=== PATIENT | female | born 1945 | race Caucasian/White ===

== ENCOUNTER 2022-03-05 11:58 | Inpatient (IN) | payer OTHER ==
[2022-03-05] MEDS ORDERED: VANCOMYCIN 1 GM in D5W (PRE-DOCKED) 1,000 MG/250 ML IVPB ONE (12:10)
[2022-03-05] MEDS ORDERED: SODIUM CHLORIDE 0.9% 500 ML INFUS.BAG IV ONE ×2 (12:10→12:59)
[2022-03-05] MEDS ORDERED: PIPERACILLIN/TAZOB 3.375 GM 3.375 GM in DEXTROSE 5%-WATER - 50 ML IVPB ONE (12:11)
[2022-03-05] MEDS ORDERED: ACETAMINOPHEN INJECTION 100 ML IVPB ONE (12:15)
[2022-03-05] MEDS ORDERED: VANCOMYCIN/WATER FOR INJ (PEG) 1,000 MG/200 ML BAG IVPB ONE (12:18)
[2022-03-05] MEDS ORDERED: PIPERACILLIN/TAZOB 3.375 GM 3.375 GM/50 ML BAG IVPB ONE ×2 (12:18→16:15)
[2022-03-05 12:38] LABS: VENOUS BASE EXCESS -3.8 mmol/L (-2-2); VENOUS O2 SATURATION 62.5 % (70-80); VENOUS PCO2 36.8 mmHg (38-52); VENOUS PH 7.371 (7.310-7.410)
[2022-03-05 12:54] LABS: HEMATOCRIT 29.8 % (32.4-45.2); HEMOGLOBIN 9.9 GM/dL (10.7-15.3); MCH 29.8 pg (25.7-33.7); MCHC 33.3 g/dl (32.0-36.0); MEAN CELL VOLUME 89.5 fl (80-96); MEAN PLT VOLUME 8.9 fl (7.5-11.1); PLATELET COUNT 152 10^3/uL (134-434); RBC 3.34 M/mm3 (3.60-5.2); RDW 13.8 % (11.6-15.6); WHITE BLOOD COUNT 15.2 K/mm3 (4.0-10.0)
[2022-03-05] MEDS ORDERED: ACETAMINOPHEN 1000 MG/100 ML BAG IVPB ONE (12:59)
[2022-03-05 13:02] LABS: INR 1.43 (0.83-1.09); PROTHROMBIN TIME (PATIENT) 16.5 SEC (9.7-13.0)
[2022-03-05 13:03] LABS: CALCIUM 9.1 mg/dL (8.5-10.1)
[2022-03-05 13:04] LABS: ALBUMIN 2.9 g/dl (3.4-5.0); BLOOD UREA NITROGEN 49.9 mg/dL (7-18)
[2022-03-05 13:05] LABS: ACTIVATED PTT 30.4 SECONDS (25.2-36.5)
[2022-03-05 13:08] LABS: TOT PROT 6.2 g/dl (6.4-8.2)
[2022-03-05 13:09] LABS: BILIRUBIN,TOTAL 1.1 mg/dL (0.2-1)
[2022-03-05] MEDS ORDERED: NOREPINEPHRINE BITARTRATE 16,000 MCG in SODIUM CHLORIDE 484 ML IV SCH (13:15)
[2022-03-05 13:35] LABS: LACTIC ACID 4.7 mmol/L (0.4-2.0)
[2022-03-05 13:36] LABS: LACTIC ACID 4.4 mmol/L (0.4-2.0)
[2022-03-05 13:38] LABS: EPI CELLS 12 /uL (0-25.1); HYALINE CASTS 1 /uL (0-3.1); URINE APPEARANCE CLOUDY; URINE BACTERIA >9,000 /uL (0-1359); URINE BILIRUBIN NEGATIVE (NEGATIVE); URINE COLOR YELLOW; URINE GLUCOSE (UA) NEGATIVE (NEGATIVE); URINE KETONE NEGATIVE (NEGATIVE); URINE LEUK ESTERASE 2+ (NEGATIVE); URINE NITRITE POSITIVE (NEGATIVE); URINE PROTEIN 2+ (NEGATIVE); URINE RBC 32 /uL (0-23.9); URINE UROBILINOGEN 0.2 mg/dL (0.2-1.0); URINE WBC 67 /uL (0-25.8)
[2022-03-05 13:40] LABS: ANISOCYTOSIS 0; HELMET CELLS 0; HOWELL-JOLLY BODIES 0; MACROCYTOSIS 0; OVALOCYTE 0; ROULEAU 0; SICKELED CELLS 0; TARGET CELLS 0; TEAR DROP CELLS 0; TOXIC GRANULATION 0
[2022-03-05] MEDS: NOREPINEPHRINE BITARTRATE 16,000 MCG in SODIUM CHLORIDE 484 ML IV SCH (13:53)
[2022-03-05] MEDS ORDERED: SODIUM CHLORIDE 1,000 ML IV SCH (14:00)
[2022-03-05] MEDS ORDERED: HEPARIN NA (PORCINE) 5,000 UNITS/ML 1ML VIAL ONE (16:15)
[2022-03-05] MEDS: HEPARIN NA (PORCINE) 5,000 UNITS/ML 1ML VIAL SQ SCH (16:15)
[2022-03-05 16:52] LABS: LACTIC ACID 2.9 mmol/L (0.4-2.0)
[2022-03-05] MEDS ORDERED: SODIUM CHLORIDE 1,000 ML IV STA (16:57)
[2022-03-05] MEDS ORDERED: MEROPENEM 500 MG in DEXTROSE 5%-WATER 100 ML IVPB SCH (17:00)
[2022-03-05] MEDS ORDERED: MEROPENEM 500 MG VIAL (RESTRICTED TO ID) IVPB ONE (17:36)
[2022-03-05] MEDS: MEROPENEM 500 MG in DEXTROSE 5%-WATER 100 ML IVPB SCH (18:11)
[2022-03-05] MEDS: SODIUM CHLORIDE 1,000 ML IV SCH (18:11)
[2022-03-05] MEDS ORDERED: PIPERACILLIN/TAZOB 3.375 GM 3.375 GM in DEXTROSE 5%-WATER - 50 ML IVPB SCH (21:00)
[2022-03-05] MEDS ORDERED: METOPROLOL TARTRATE 5 MG/5 ML VIAL IVPUSH ONE (23:11)
[2022-03-05] MEDS ORDERED: METOPROLOL TARTRATE 5 MG/5 ML VIAL IVPUSH PRN ×2 (23:14)
[2022-03-06] MEDS: MUPIROCIN 2% TOPICAL OINTMENT FOR DECOLONIZATION NS SCH ×3 (00:08→22:07)
[2022-03-06] MEDS: HEPARIN NA (PORCINE) 5,000 UNITS/ML 1ML VIAL SQ SCH ×4 (00:15→22:09)
[2022-03-06] MEDS: CHLORHEXIDINE GLUCONATE 4% CLEANSER FOR DECOLONIZATION TP SCH ×2 (00:16→22:07)
[2022-03-06] MEDS ORDERED: DEXAMETHASONE SOD PHOSPHATE 10 MG/1 ML VIAL ONE (00:36)
[2022-03-06] MEDS ORDERED: MIDAZOLAM IN 0.9 % SOD.CHLORID 1 MG/1 ML PLAST..BAG ONE (00:44)
[2022-03-06] MEDS ORDERED: MIDAZOLAM 100 MG in SODIUM CHLORIDE 100 ML IVPB SCH (00:45)
[2022-03-06 02:17] LABS: HEMOGLOBIN 8.2 GM/dL (10.7-15.3); MCH 29.2 pg (25.7-33.7); MCHC 31.5 g/dl (32.0-36.0); MEAN CELL VOLUME 92.6 fl (80-96); MEAN PLT VOLUME 8.8 fl (7.5-11.1); PLATELET COUNT 107 10^3/uL (134-434); RBC 2.81 M/mm3 (3.60-5.2); RDW 14.8 % (11.6-15.6); WHITE BLOOD COUNT 13.6 K/mm3 (4.0-10.0)
[2022-03-06 02:18] LABS: ARTERIAL BLOOD GAS BASE EXCESS -23.5 mmol/L (-2-2)
[2022-03-06 02:22] LABS: ALLENS TEST POSITIVE
[2022-03-06 02:23] LABS: ARTERIAL BLOOD GAS pH 6.925 (7.350-7.450); VENT MODE A/C; VENT RATE 16
[2022-03-06] MEDS ORDERED: DEXTROSE 50%-WATER 25 GM/50 ML DISP.SYRIN ONE (02:25)
[2022-03-06 02:43] LABS: CHLORIDE 112 mmol/L (98-107); SODIUM 142 mmol/L (136-145)
[2022-03-06 02:46] LABS: ANION GAP 17 MMOL/L (8-16); CO2 13 mmol/L (21-32); GLUCOSE,RANDOM 52 mg/dL (74-106); MAGNESIUM 1.9 mg/dL (1.8-2.4)
[2022-03-06 02:48] LABS: SGPT/ALT 280 U/L (13-61)
[2022-03-06 02:49] LABS: CREATININE 2.9 mg/dL (0.55-1.3); PHOSPHOROUS 6.6 mg/dL (2.5-4.9); SGOT/AST 316 U/L (15-37)
[2022-03-06 02:50] LABS: BILIRUBIN,TOTAL 0.8 mg/dL (0.2-1); TOT PROT 4.8 g/dl (6.4-8.2)
[2022-03-06 02:53] LABS: ALBUMIN 2.1 g/dl (3.4-5.0); ALK PHOS 164 U/L (45-117); CALCIUM 7.1 mg/dL (8.5-10.1); LACTIC ACID 11.4 mmol/L (0.4-2.0)
[2022-03-06] MEDS: MIDAZOLAM IN 0.9 % SOD.CHLORID 100 MG/100 ML PLAST..BAG IVPB SCH ×2 (03:53→23:18)
[2022-03-06] MEDS: SODIUM BICARBONATE 8.4% - 150 MEQ in DEXTROSE 5%-WATER - 950 ML IVPB SCH ×3 (04:24→23:18)
[2022-03-06] MEDS ORDERED: VASOPRESSIN 20 UNITS/ML VIAL IV ONE (04:54)
[2022-03-06] MEDS: VASOPRESSIN 40 UNITS/100 ML BAG IV SCH (05:02)
[2022-03-06 05:17] LABS: ANISOCYTOSIS 1+; MACROCYTOSIS 0; OVALOCYTE 1+
[2022-03-06] MEDS: MEROPENEM 500 MG in DEXTROSE 5%-WATER 100 ML IVPB SCH (05:58)
[2022-03-06] MEDS: SODIUM CHLORIDE 1,000 ML IV SCH ×2 (06:14→16:27)
[2022-03-06 08:10] LABS: BASO % 0.3 % (0-2.0); EOS % 14.6 % (0-4.5); HEMATOCRIT 26.7 % (32.4-45.2); HEMOGLOBIN 8.6 GM/dL (10.7-15.3); LYMPH % 1.6 % (8-40); MCH 29.9 pg (25.7-33.7); MCHC 32.4 g/dl (32.0-36.0); MEAN CELL VOLUME 92.5 fl (80-96); MEAN PLT VOLUME 9.9 fl (7.5-11.1); MONO % 1.5 % (3.8-10.2); PLATELET COUNT 82 10^3/uL (134-434); RBC 2.88 M/mm3 (3.60-5.2); RDW 14.4 % (11.6-15.6); WHITE BLOOD COUNT 17.6 K/mm3 (4.0-10.0)
[2022-03-06 09:14] LABS: ALBUMIN 1.7 g/dl (3.4-5.0); BLOOD UREA NITROGEN 49.9 mg/dL (7-18); CALCIUM 7.6 mg/dL (8.5-10.1); MAGNESIUM 1.9 mg/dL (1.8-2.4)
[2022-03-06 09:17] LABS: CREATININE 2.9 mg/dL (0.55-1.3); PHOSPHOROUS 7.2 mg/dL (2.5-4.9)
[2022-03-06 09:18] LABS: BILIRUBIN,TOTAL 1.1 mg/dL (0.2-1)
[2022-03-06] MEDS ORDERED: VANCOMYCIN 1 GM/200 ML PREMIX BAG IVPB SCH (10:00)
[2022-03-06] MEDS: NOREPINEPHRINE BITARTRATE 16,000 MCG in SODIUM CHLORIDE 484 ML IV SCH (14:26)
[2022-03-06 16:09] LABS: ALLENS TEST POSITIVE; ARTERIAL BLD GAS O2 SATURATION 91.4 % (95-98); ARTERIAL BLOOD GAS PO2 69.4 mmHg (80-100); ARTERIAL BLOOD GAS pH 7.254 (7.350-7.450)
[2022-03-06 16:11] LABS: VENT MODE AC; VENT RATE 20
[2022-03-06] MEDS: MEROPENEM 1 GM in DEXTROSE 5%-WATER 100 ML IVPB SCH (16:27)
[2022-03-06] MEDS ORDERED: ADENOSINE 6 MG/2 ML VIAL IVPUSH ONE (17:05)
[2022-03-06] MEDS ORDERED: SODIUM CHLORIDE 1,000 ML IV STA (20:47)
[2022-03-06] MEDS ORDERED: PIPERACILLIN/TAZOB 3.375 GM 3.375 GM in DEXTROSE 5%-WATER - 50 ML IVPB SCH (21:00)
[2022-03-06] MEDS: PHENYLEPHRINE NS PREMIX 50,000 MCG/500 ML BAG CVP SCH (22:04)
[2022-03-06] MEDS ORDERED: FUROSEMIDE 40 MG/4 ML INJECTABLE VIAL IVPUSH ONE (23:53)
[2022-03-07 00:29] LABS: CHLORIDE 108 mmol/L (98-107); SODIUM 145 mmol/L (136-145)
[2022-03-07 00:31] LABS: ANION GAP 17 MMOL/L (8-16); CO2 19 mmol/L (21-32)
[2022-03-07 00:32] LABS: BLOOD UREA NITROGEN 49.7 mg/dL (7-18); GLUCOSE,RANDOM 323 mg/dL (74-106)
[2022-03-07 00:35] LABS: CREATININE 2.8 mg/dL (0.55-1.3)
[2022-03-07 00:36] LABS: LACTIC ACID 9.6 mmol/L (0.4-2.0)
[2022-03-07 00:37] LABS: CALCIUM 6.2 mg/dL (8.5-10.1)
[2022-03-07] MEDS: FENTANYL NS IVPB 500 MCG/100 ML BAG IVPB SCH ×2 (02:46→15:00)
[2022-03-07] MEDS: VASOPRESSIN 40 UNITS/100 ML BAG IV SCH ×3 (02:48→17:22)
[2022-03-07] MEDS ORDERED: NOREPINEPHRINE BITARTRATE 4 MG/4 ML ML IV ONE (03:04)
[2022-03-07] MEDS: NOREPINEPHRINE BITARTRATE 16,000 MCG in SODIUM CHLORIDE 484 ML IV SCH ×2 (03:10→17:18)
[2022-03-07] MEDS: MEROPENEM 1 GM in DEXTROSE 5%-WATER 100 ML IVPB SCH ×2 (05:21→17:14)
[2022-03-07] MEDS: HEPARIN NA (PORCINE) 5,000 UNITS/ML 1ML VIAL SQ SCH ×3 (05:21→21:43)
[2022-03-07] MEDS: MIDAZOLAM IN 0.9 % SOD.CHLORID 100 MG/100 ML PLAST..BAG IVPB SCH ×2 (05:22→15:00)
[2022-03-07] MEDS: METOPROLOL TARTRATE 5 MG/5 ML VIAL IVPUSH PRN (06:32)
[2022-03-07 06:53] LABS: HEMATOCRIT 29.1 % (32.4-45.2); HEMOGLOBIN 9.6 GM/dL (10.7-15.3); MCH 29.5 pg (25.7-33.7); MCHC 32.9 g/dl (32.0-36.0); MEAN CELL VOLUME 89.6 fl (80-96); MEAN PLT VOLUME 10.6 fl (7.5-11.1); PLATELET COUNT 37 10^3/uL (134-434); RBC 3.24 M/mm3 (3.60-5.2)
[2022-03-07 07:35] LABS: WHITE BLOOD COUNT 34.7 K/mm3 (4.0-10.0)
[2022-03-07 07:49] LABS: CHLORIDE 108 mmol/L (98-107); SODIUM 144 mmol/L (136-145)
[2022-03-07 07:53] LABS: ALBUMIN 1.4 g/dl (3.4-5.0); ANION GAP 15 MMOL/L (8-16); BLOOD UREA NITROGEN 50.9 mg/dL (7-18); CO2 21 mmol/L (21-32)
[2022-03-07 07:54] LABS: GLUCOSE,RANDOM 322 mg/dL (74-106); MAGNESIUM 1.5 mg/dL (1.8-2.4)
[2022-03-07 07:56] LABS: PHOSPHOROUS 4.7 mg/dL (2.5-4.9); SGPT/ALT 529 U/L (13-61)
[2022-03-07 07:57] LABS: CREATININE 2.7 mg/dL (0.55-1.3); SGOT/AST 472 U/L (15-37)
[2022-03-07 07:58] LABS: BILIRUBIN,TOTAL 1.1 mg/dL (0.2-1); TOT PROT 3.6 g/dl (6.4-8.2)
[2022-03-07 07:59] LABS: ALK PHOS 162 U/L (45-117)
[2022-03-07 08:00] LABS: CALCIUM 5.9 mg/dL (8.5-10.1)
[2022-03-07] MEDS: PHENYLEPHRINE NS PREMIX 50,000 MCG/500 ML BAG CVP SCH ×2 (08:30→22:00)
[2022-03-07] MEDS ORDERED: CALCIUM GLUC IN NACL, ISO-OSM 1 GM/50 ML BAG IVPB ONE (09:00)
[2022-03-07] MEDS ORDERED: VANCOMYCIN 1 GM/200 ML PREMIX BAG IVPB SCH (10:00)
[2022-03-07] MEDS: MUPIROCIN 2% TOPICAL OINTMENT FOR DECOLONIZATION NS SCH ×2 (10:18→21:43)
[2022-03-07 10:32] LABS: ANISOCYTOSIS 0; HELMET CELLS 0; HOWELL-JOLLY BODIES 0; MACROCYTOSIS 0; OVALOCYTE 0; ROULEAU 0; SICKELED CELLS 0; TARGET CELLS 0; TEAR DROP CELLS 0; TOXIC GRANULATION 0
[2022-03-07] MEDS: SODIUM BICARBONATE 8.4% - 150 MEQ in DEXTROSE 5%-WATER - 950 ML IVPB SCH (11:00)
[2022-03-07 13:35] LABS: ARTERIAL BLD GAS O2 SATURATION 98.6 % (95-98); ARTERIAL BLOOD GAS BASE EXCESS 2.2 mmol/L (-2-2); ARTERIAL BLOOD GAS PO2 119.7 mmHg (80-100); ARTERIAL BLOOD GAS pH 7.474 (7.350-7.450)
[2022-03-07 13:37] LABS: ALLENS TEST POSITIVE
[2022-03-07 13:38] LABS: VENT MODE AC; VENT RATE 20
[2022-03-07] MEDS ORDERED: MAGNESIUM SULFATE IN WATER 2 GM/50 ML IVPB IVPB ONE (16:45)
[2022-03-07] MEDS: HYDROCORTISONE SOD SUCCINATE 100 MG/2 ML VIAL IVPUSH SCH (17:15)
[2022-03-07] MEDS: SODIUM CHLORIDE 1,000 ML IV SCH (17:16)
[2022-03-07] MEDS: INSULIN SLIDING SCALE (NOVOLOG) 1 VIAL SQ SCH ×2 (17:17→21:47)
[2022-03-07] MEDS: PANTOPRAZOLE SODIUM 40 MG VIAL IVPUSH SCH (19:57)
[2022-03-07] MEDS: CHLORHEXIDINE GLUCONATE 4% CLEANSER FOR DECOLONIZATION TP SCH (21:43)
[2022-03-08] MEDS: HYDROCORTISONE SOD SUCCINATE 100 MG/2 ML VIAL IVPUSH SCH ×3 (01:59→17:43)
[2022-03-08] MEDS: MIDAZOLAM IN 0.9 % SOD.CHLORID 100 MG/100 ML PLAST..BAG IVPB SCH (03:04)
[2022-03-08] MEDS: MEROPENEM 1 GM in DEXTROSE 5%-WATER 100 ML IVPB SCH ×2 (05:10→17:25)
[2022-03-08] MEDS: FENTANYL NS IVPB 500 MCG/100 ML BAG IVPB SCH (05:12)
[2022-03-08] MEDS: VASOPRESSIN 40 UNITS/100 ML BAG IV SCH ×2 (05:13→20:38)
[2022-03-08] MEDS: HEPARIN NA (PORCINE) 5,000 UNITS/ML 1ML VIAL SQ SCH ×3 (05:18→21:19)
[2022-03-08] MEDS: INSULIN SLIDING SCALE (NOVOLOG) 1 VIAL SQ SCH ×4 (07:10→21:20)
[2022-03-08 07:16] LABS: ARTERIAL BLOOD GAS BASE EXCESS 1.7 mmol/L (-2-2); ARTERIAL BLOOD GAS PO2 80.3 mmHg (80-100); ARTERIAL BLOOD GAS pH 7.418 (7.350-7.450)
[2022-03-08 07:19] LABS: VENT MODE V-A/C; VENT RATE 20
[2022-03-08 08:10] LABS: CHLORIDE 105 mmol/L (98-107); SODIUM 144 mmol/L (136-145)
[2022-03-08 08:14] LABS: ALBUMIN 1.4 g/dl (3.4-5.0); ANION GAP 10 MMOL/L (8-16); BLOOD UREA NITROGEN 51.1 mg/dL (7-18); CO2 30 mmol/L (21-32); GLUCOSE,RANDOM 195 mg/dL (74-106)
[2022-03-08 08:15] LABS: MAGNESIUM 1.9 mg/dL (1.8-2.4)
[2022-03-08 08:17] LABS: CREATININE 2.6 mg/dL (0.55-1.3); SGOT/AST 191 U/L (15-37); SGPT/ALT 369 U/L (13-61)
[2022-03-08 08:18] LABS: BILIRUBIN,TOTAL 1.6 mg/dL (0.2-1)
[2022-03-08 08:19] LABS: TOT PROT 3.8 g/dl (6.4-8.2)
[2022-03-08 08:22] LABS: ALK PHOS 221 U/L (45-117); CALCIUM 6.6 mg/dL (8.5-10.1)
[2022-03-08 08:30] LABS: HEMATOCRIT 25.6 % (32.4-45.2); HEMOGLOBIN 8.4 GM/dL (10.7-15.3); MCH 29.1 pg (25.7-33.7); MCHC 32.9 g/dl (32.0-36.0); MEAN CELL VOLUME 88.3 fl (80-96); MEAN PLT VOLUME 9.8 fl (7.5-11.1); RBC 2.89 M/mm3 (3.60-5.2); RDW 14.4 % (11.6-15.6)
[2022-03-08 08:48] LABS: WHITE BLOOD COUNT 31.9 K/mm3 (4.0-10.0)
[2022-03-08] MEDS: METOPROLOL TARTRATE 5 MG/5 ML VIAL IVPUSH PRN (09:44)
[2022-03-08] MEDS: PANTOPRAZOLE SODIUM 40 MG VIAL IVPUSH SCH (09:47)
[2022-03-08] MEDS ORDERED: CALCIUM GLUCONATE 10% - 1,000 MG/10 ML VIAL IVPB ONE (09:55)
[2022-03-08] MEDS: MUPIROCIN 2% TOPICAL OINTMENT FOR DECOLONIZATION NS SCH ×2 (09:57→21:19)
[2022-03-08] MEDS: SODIUM CHLORIDE 1,000 ML IV SCH ×2 (09:58→17:26)
[2022-03-08 10:15] LABS: ANISOCYTOSIS 0; HELMET CELLS 0; HOWELL-JOLLY BODIES 0; MACROCYTOSIS 0; OVALOCYTE 0; ROULEAU 0; SICKELED CELLS 0; TARGET CELLS 0; TEAR DROP CELLS 0; TOXIC GRANULATION 0
[2022-03-08 10:48] LABS: PLATELET COUNT 16 10^3/uL (134-434)
[2022-03-08] MEDS: NOREPINEPHRINE BITARTRATE 16,000 MCG in SODIUM CHLORIDE 484 ML IV SCH ×2 (12:27→17:29)
[2022-03-08] MEDS: CHLORHEXIDINE GLUCONATE 4% CLEANSER FOR DECOLONIZATION TP SCH (21:19)
[2022-03-09] MEDS: FENTANYL NS IVPB 500 MCG/100 ML BAG IVPB SCH ×2 (00:24→03:18)
[2022-03-09] MEDS: SODIUM CHLORIDE 1,000 ML IV SCH (00:25)
[2022-03-09] MEDS: HYDROCORTISONE SOD SUCCINATE 100 MG/2 ML VIAL IVPUSH SCH ×3 (01:50→17:10)
[2022-03-09] MEDS: MIDAZOLAM IN 0.9 % SOD.CHLORID 100 MG/100 ML PLAST..BAG IVPB SCH (04:19)
[2022-03-09] MEDS: VASOPRESSIN 40 UNITS/100 ML BAG IV SCH (04:21)
[2022-03-09] MEDS: HEPARIN NA (PORCINE) 5,000 UNITS/ML 1ML VIAL SQ SCH ×3 (05:21→21:52)
[2022-03-09] MEDS: MEROPENEM 1 GM in DEXTROSE 5%-WATER 100 ML IVPB SCH ×2 (05:21→17:09)
[2022-03-09] MEDS: INSULIN SLIDING SCALE (NOVOLOG) 1 VIAL SQ SCH ×4 (06:23→22:00)
[2022-03-09 06:43] LABS: ARTERIAL BLD GAS O2 SATURATION 90.4 % (95-98); ARTERIAL BLOOD GAS BASE EXCESS 2.4 mmol/L (-2-2); ARTERIAL BLOOD GAS PO2 56.7 mmHg (80-100); ARTERIAL BLOOD GAS pH 7.435 (7.350-7.450)
[2022-03-09 06:46] LABS: VENT MODE V-A/C
[2022-03-09 06:51] LABS: VENT RATE 20
[2022-03-09 06:58] LABS: HEMATOCRIT 23.3 % (32.4-45.2); HEMOGLOBIN 7.6 GM/dL (10.7-15.3); MCH 28.3 pg (25.7-33.7); MCHC 32.5 g/dl (32.0-36.0); MEAN CELL VOLUME 87.1 fl (80-96); MEAN PLT VOLUME 9.7 fl (7.5-11.1); RBC 2.68 M/mm3 (3.60-5.2); RDW 14.5 % (11.6-15.6); WHITE BLOOD COUNT 29.1 K/mm3 (4.0-10.0)
[2022-03-09 07:09] LABS: PLATELET COUNT 12 10^3/uL (134-434)
[2022-03-09 07:23] LABS: ALBUMIN 1.4 g/dl (3.4-5.0); BLOOD UREA NITROGEN 51.3 mg/dL (7-18)
[2022-03-09 07:26] LABS: CREATININE 2.4 mg/dL (0.55-1.3)
[2022-03-09 07:28] LABS: TOT PROT 3.8 g/dl (6.4-8.2)
[2022-03-09 07:51] LABS: BILIRUBIN,DIRECT 0.5 mg/dL (0.0-0.2); BILIRUBIN,TOTAL 1.3 mg/dL (0.2-1)
[2022-03-09] MEDS: KCL 10 MEQ IVPB 10 MEQ/100 ML INFUS.BAG IVPB SCH ×3 (09:50→11:48)
[2022-03-09] MEDS: PANTOPRAZOLE SODIUM 40 MG VIAL IVPUSH SCH (09:51)
[2022-03-09] MEDS: MUPIROCIN 2% TOPICAL OINTMENT FOR DECOLONIZATION NS SCH ×2 (09:51→21:52)
[2022-03-09] MEDS: NOREPINEPHRINE BITARTRATE 16,000 MCG in SODIUM CHLORIDE 484 ML IV SCH (14:19)
[2022-03-09 14:29] VITALS: BMI 25.0
[2022-03-09] MEDS: SODIUM CHLORIDE 0.45% 1,000 ML IV SCH (17:09)
[2022-03-09] MEDS: MORPHINE SULFATE/0.9% NACL/PF 100 MG/100 ML BAG IVPB SCH (19:11)
[2022-03-09] MEDS: CHLORHEXIDINE GLUCONATE 4% CLEANSER FOR DECOLONIZATION TP SCH (21:52)
[2022-03-10] MEDS: HYDROCORTISONE SOD SUCCINATE 100 MG/2 ML VIAL IVPUSH SCH ×3 (01:05→17:32)
[2022-03-10] MEDS: VASOPRESSIN 40 UNITS/100 ML BAG IV SCH (04:30)
[2022-03-10] MEDS: MEROPENEM 1 GM in DEXTROSE 5%-WATER 100 ML IVPB SCH ×2 (04:42→17:31)
[2022-03-10] MEDS: SODIUM CHLORIDE 0.45% 1,000 ML IV SCH ×2 (04:49→17:50)
[2022-03-10] MEDS: INSULIN SLIDING SCALE (NOVOLOG) 1 VIAL SQ SCH ×4 (06:31→22:47)
[2022-03-10] MEDS: HEPARIN NA (PORCINE) 5,000 UNITS/ML 1ML VIAL SQ SCH ×3 (06:31→22:14)
[2022-03-10 07:55] LABS: HEMATOCRIT 23.5 % (32.4-45.2); HEMOGLOBIN 7.7 GM/dL (10.7-15.3); MCH 28.7 pg (25.7-33.7); MCHC 32.8 g/dl (32.0-36.0); MEAN CELL VOLUME 87.4 fl (80-96); MEAN PLT VOLUME 10.3 fl (7.5-11.1); RBC 2.68 M/mm3 (3.60-5.2); RDW 14.5 % (11.6-15.6); WHITE BLOOD COUNT 28.9 K/mm3 (4.0-10.0)
[2022-03-10 08:15] LABS: CALCIUM 7.1 mg/dL (8.5-10.1)
[2022-03-10 08:17] LABS: ALBUMIN 1.4 g/dl (3.4-5.0)
[2022-03-10 08:20] LABS: CREATININE 2.2 mg/dL (0.55-1.3); PHOSPHOROUS 2.2 mg/dL (2.5-4.9)
[2022-03-10 08:21] LABS: BILIRUBIN,TOTAL 0.9 mg/dL (0.2-1); TOT PROT 3.9 g/dl (6.4-8.2)
[2022-03-10 08:39] LABS: PLATELET COUNT 16 10^3/uL (134-434)
[2022-03-10] MEDS: PANTOPRAZOLE SODIUM 40 MG VIAL IVPUSH SCH (09:56)
[2022-03-10] MEDS: MUPIROCIN 2% TOPICAL OINTMENT FOR DECOLONIZATION NS SCH (09:56)
[2022-03-10 10:01] LABS: ANISOCYTOSIS 1+; MACROCYTOSIS 1+
[2022-03-10] MEDS ORDERED: POTASSIUM PHOSPHATE 20 MM in DEXTROSE 5%-WATER - 250 ML IVPB ONE (14:00)
[2022-03-10] MEDS: MORPHINE SULFATE/0.9% NACL/PF 100 MG/100 ML BAG IVPB SCH (19:50)
[2022-03-10] MEDS: NOREPINEPHRINE BITARTRATE 16,000 MCG in SODIUM CHLORIDE 484 ML IV SCH (19:50)
[2022-03-10] MEDS: CHLORHEXIDINE GLUCONATE 4% CLEANSER FOR DECOLONIZATION TP SCH (22:15)
[2022-03-10 22:22] LABS: ARTERIAL BLD GAS O2 SATURATION 98.4 % (95-98); ARTERIAL BLOOD GAS BASE EXCESS 2.6 mmol/L (-2-2)
[2022-03-10 22:24] LABS: VENT MODE V-A/C; VENT RATE 20
[2022-03-11] MEDS: HYDROCORTISONE SOD SUCCINATE 100 MG/2 ML VIAL IVPUSH SCH ×3 (02:56→17:04)
[2022-03-11] MEDS: VASOPRESSIN 40 UNITS/100 ML BAG IV SCH (04:29)
[2022-03-11] MEDS: MEROPENEM 1 GM in DEXTROSE 5%-WATER 100 ML IVPB SCH ×2 (04:31→17:04)
[2022-03-11] MEDS: HEPARIN NA (PORCINE) 5,000 UNITS/ML 1ML VIAL SQ SCH (05:56)
[2022-03-11] MEDS: INSULIN SLIDING SCALE (NOVOLOG) 1 VIAL SQ SCH ×4 (06:20→21:31)
[2022-03-11] MEDS: SODIUM CHLORIDE 0.45% 1,000 ML IV SCH ×2 (07:22→17:03)
[2022-03-11 08:14] LABS: HEMATOCRIT 23.6 % (32.4-45.2); HEMOGLOBIN 7.8 GM/dL (10.7-15.3); MCH 29.1 pg (25.7-33.7); MCHC 33.1 g/dl (32.0-36.0); MEAN PLT VOLUME 12.3 fl (7.5-11.1); RBC 2.68 M/mm3 (3.60-5.2); RDW 14.3 % (11.6-15.6); WHITE BLOOD COUNT 26.7 K/mm3 (4.0-10.0)
[2022-03-11 08:23] LABS: BLOOD UREA NITROGEN 71.7 mg/dL (7-18); MAGNESIUM 1.9 mg/dL (1.8-2.4)
[2022-03-11 08:24] LABS: ALBUMIN 1.4 g/dl (3.4-5.0); CALCIUM 7.3 mg/dL (8.5-10.1)
[2022-03-11 08:26] LABS: BILIRUBIN,TOTAL 1.1 mg/dL (0.2-1); PHOSPHOROUS 3.9 mg/dL (2.5-4.9)
[2022-03-11 08:57] LABS: PLATELET COUNT 25 10^3/uL (134-434)
[2022-03-11 10:15] LABS: ANISOCYTOSIS 0; HELMET CELLS 0; HOWELL-JOLLY BODIES 0; MACROCYTOSIS 0; OVALOCYTE 0; ROULEAU 0; SICKELED CELLS 0; TARGET CELLS 0; TEAR DROP CELLS 0; TOXIC GRANULATION 0
[2022-03-11] MEDS: PANTOPRAZOLE SODIUM 40 MG VIAL IVPUSH SCH (10:35)
[2022-03-11] MEDS: MORPHINE SULFATE/0.9% NACL/PF 100 MG/100 ML BAG IVPB SCH (12:56)
[2022-03-11] MEDS: NOREPINEPHRINE BITARTRATE 16,000 MCG in SODIUM CHLORIDE 484 ML IV SCH (17:02)
[2022-03-11] MEDS: CHLORHEXIDINE GLUCONATE 4% CLEANSER FOR DECOLONIZATION TP SCH (21:27)
[2022-03-12] MEDS: HYDROCORTISONE SOD SUCCINATE 100 MG/2 ML VIAL IVPUSH SCH ×3 (01:23→17:33)
[2022-03-12] MEDS: MEROPENEM 1 GM in DEXTROSE 5%-WATER 100 ML IVPB SCH ×2 (04:32→17:32)
[2022-03-12] MEDS: VASOPRESSIN 40 UNITS/100 ML BAG IV SCH (04:33)
[2022-03-12] MEDS: INSULIN SLIDING SCALE (NOVOLOG) 1 VIAL SQ SCH ×4 (06:08→22:41)
[2022-03-12 06:57] LABS: BASO % 0.1 % (0-2.0); HEMATOCRIT 22.6 % (32.4-45.2); HEMOGLOBIN 7.5 GM/dL (10.7-15.3); LYMPH % 1.3 % (8-40); MCH 29.2 pg (25.7-33.7); MCHC 32.9 g/dl (32.0-36.0); MEAN CELL VOLUME 88.7 fl (80-96); MEAN PLT VOLUME 11.8 fl (7.5-11.1); MONO % 1.9 % (3.8-10.2); NEUT % 96.7 % (42.8-82.8); RBC 2.55 M/mm3 (3.60-5.2); RDW 14.4 % (11.6-15.6); WHITE BLOOD COUNT 20.2 K/mm3 (4.0-10.0)
[2022-03-12 07:18] LABS: ALBUMIN 1.4 g/dl (3.4-5.0); BLOOD UREA NITROGEN 78.5 mg/dL (7-18); CALCIUM 7.1 mg/dL (8.5-10.1); MAGNESIUM 1.9 mg/dL (1.8-2.4)
[2022-03-12 07:22] LABS: CREATININE 1.9 mg/dL (0.55-1.3); PHOSPHOROUS 4.3 mg/dL (2.5-4.9)
[2022-03-12 07:23] LABS: BILIRUBIN,TOTAL 0.8 mg/dL (0.2-1); TOT PROT 3.8 g/dl (6.4-8.2)
[2022-03-12 09:22] LABS: ANISOCYTOSIS 1+; MACROCYTOSIS 0; PLATELET ESTIMATE DECREASED
[2022-03-12 10:30] LABS: PLATELET COUNT 30 10^3/uL (134-434)
[2022-03-12] MEDS: PANTOPRAZOLE SODIUM 40 MG VIAL IVPUSH SCH (10:37)
[2022-03-12] MEDS: SODIUM CHLORIDE 0.45% 1,000 ML IV SCH ×2 (17:33→17:51)
[2022-03-12] MEDS ORDERED: LORazepam 2 MG/ML SDV VIAL IVPUSH ONE (19:24)
[2022-03-12] MEDS ORDERED: levETIRAcetam 500 MG/5 ML INJECTION VIAL IVPB ONE (21:28)
[2022-03-12] MEDS: CHLORHEXIDINE GLUCONATE 4% CLEANSER FOR DECOLONIZATION TP SCH (22:19)
[2022-03-13] MEDS: HYDROCORTISONE SOD SUCCINATE 100 MG/2 ML VIAL IVPUSH SCH ×3 (01:31→17:21)
[2022-03-13] MEDS: MEROPENEM 1 GM in DEXTROSE 5%-WATER 100 ML IVPB SCH ×2 (04:47→17:17)
[2022-03-13] MEDS: VASOPRESSIN 40 UNITS/100 ML BAG IV SCH (04:47)
[2022-03-13] MEDS: INSULIN SLIDING SCALE (NOVOLOG) 1 VIAL SQ SCH ×4 (06:24→21:59)
[2022-03-13 06:25] LABS: HEMATOCRIT 20.9 % (32.4-45.2); MCH 29.4 pg (25.7-33.7); MCHC 33.1 g/dl (32.0-36.0); MEAN CELL VOLUME 88.8 fl (80-96); MEAN PLT VOLUME 12.7 fl (7.5-11.1); RBC 2.35 M/mm3 (3.60-5.2); RDW 14.1 % (11.6-15.6); WHITE BLOOD COUNT 17.5 K/mm3 (4.0-10.0)
[2022-03-13 06:43] LABS: HEMOGLOBIN 6.9 GM/dL (10.7-15.3); PLATELET COUNT 36 10^3/uL (134-434)
[2022-03-13 06:44] LABS: CHLORIDE 107 mmol/L (98-107); SODIUM 140 mmol/L (136-145)
[2022-03-13 06:50] LABS: ALBUMIN 1.2 g/dl (3.4-5.0); ANION GAP 7 MMOL/L (8-16); BLOOD UREA NITROGEN 86.3 mg/dL (7-18); CO2 26 mmol/L (21-32); GLUCOSE,RANDOM 258 mg/dL (74-106); MAGNESIUM 2.1 mg/dL (1.8-2.4)
[2022-03-13 06:53] LABS: CREATININE 1.8 mg/dL (0.55-1.3); PHOSPHOROUS 5.2 mg/dL (2.5-4.9); SGOT/AST 38 U/L (15-37)
[2022-03-13 06:55] LABS: BILIRUBIN,TOTAL 0.7 mg/dL (0.2-1); TOT PROT 3.5 g/dl (6.4-8.2)
[2022-03-13 07:14] LABS: ALK PHOS 312 U/L (45-117); CALCIUM 6.8 mg/dL (8.5-10.1); SGPT/ALT 88 U/L (13-61)
[2022-03-13] MEDS: levETIRAcetam 500 MG/5 ML INJECTION VIAL IVPB SCH ×2 (09:08→21:52)
[2022-03-13] MEDS: PANTOPRAZOLE SODIUM 40 MG VIAL IVPUSH SCH (09:08)
[2022-03-13 09:35] LABS: ANISOCYTOSIS 0; MACROCYTOSIS 0; PLATELET ESTIMATE DECREASED
[2022-03-13 10:00] LABS: HEMATOCRIT 23.1 % (32.4-45.2); HEMOGLOBIN 7.8 GM/dL (10.7-15.3); MCH 29.9 pg (25.7-33.7); MCHC 33.6 g/dl (32.0-36.0); MEAN CELL VOLUME 88.9 fl (80-96); MEAN PLT VOLUME 13.1 fl (7.5-11.1); PLATELET COUNT 42 10^3/uL (134-434); RDW 14.4 % (11.6-15.6); WHITE BLOOD COUNT 20.7 K/mm3 (4.0-10.0)
[2022-03-13 11:19] LABS: ANISOCYTOSIS 1+; MACROCYTOSIS 0; PLATELET ESTIMATE DECREASED
[2022-03-13] MEDS: SODIUM CHLORIDE 0.45% 1,000 ML IV SCH ×2 (16:53→21:53)
[2022-03-13] MEDS ORDERED: INSULIN (NOVOLOG) ASPART 100 UNITS/ML 10ML VIAL ONE (17:10)
[2022-03-13] MEDS: CHLORHEXIDINE GLUCONATE 4% CLEANSER FOR DECOLONIZATION TP SCH (21:53)
[2022-03-14] MEDS: HYDROCORTISONE SOD SUCCINATE 100 MG/2 ML VIAL IVPUSH SCH ×3 (01:56→17:51)
[2022-03-14] MEDS: MEROPENEM 1 GM in DEXTROSE 5%-WATER 100 ML IVPB SCH ×2 (02:06→14:43)
[2022-03-14] MEDS: INSULIN SLIDING SCALE (NOVOLOG) 1 VIAL SQ SCH ×4 (06:40→21:55)
[2022-03-14 08:05] LABS: HEMATOCRIT 24.3 % (32.4-45.2); HEMOGLOBIN 8.1 GM/dL (10.7-15.3); MCH 29.7 pg (25.7-33.7); MCHC 33.5 g/dl (32.0-36.0); MEAN CELL VOLUME 88.6 fl (80-96); MEAN PLT VOLUME 13.2 fl (7.5-11.1); PLATELET COUNT 47 10^3/uL (134-434); RBC 2.75 M/mm3 (3.60-5.2); RDW 14.2 % (11.6-15.6); WHITE BLOOD COUNT 20.4 K/mm3 (4.0-10.0)
[2022-03-14 08:19] LABS: BLOOD UREA NITROGEN 100.4 mg/dL (7-18); MAGNESIUM 2.4 mg/dL (1.8-2.4)
[2022-03-14 08:20] LABS: ALBUMIN 1.4 g/dl (3.4-5.0)
[2022-03-14 08:22] LABS: CREATININE 1.8 mg/dL (0.55-1.3); PHOSPHOROUS 6.3 mg/dL (2.5-4.9)
[2022-03-14 08:24] LABS: BILIRUBIN,TOTAL 0.7 mg/dL (0.2-1)
[2022-03-14 09:32] LABS: ANISOCYTOSIS 2+; MACROCYTOSIS 0; PLATELET ESTIMATE DECREASED
[2022-03-14] MEDS: levETIRAcetam 500 MG/5 ML INJECTION VIAL IVPB SCH ×2 (10:22→21:43)
[2022-03-14] MEDS: PANTOPRAZOLE SODIUM 40 MG VIAL IVPUSH SCH (10:22)
[2022-03-14] MEDS: CHLORHEXIDINE GLUCONATE 4% CLEANSER FOR DECOLONIZATION TP SCH (21:43)
[2022-03-14] MEDS: SODIUM CHLORIDE 0.45% 1,000 ML IV SCH (21:43)
[2022-03-15] MEDS: HYDROCORTISONE SOD SUCCINATE 100 MG/2 ML VIAL IVPUSH SCH ×4 (01:53→23:50)
[2022-03-15] MEDS: MEROPENEM 1 GM in DEXTROSE 5%-WATER 100 ML IVPB SCH ×2 (01:55→14:01)
[2022-03-15] MEDS: INSULIN SLIDING SCALE (NOVOLOG) 1 VIAL SQ SCH ×4 (07:06→21:45)
[2022-03-15 07:51] LABS: HEMATOCRIT 24.6 % (32.4-45.2); HEMOGLOBIN 8.3 GM/dL (10.7-15.3); MCH 30.1 pg (25.7-33.7); MCHC 33.7 g/dl (32.0-36.0); MEAN CELL VOLUME 89.3 fl (80-96); MEAN PLT VOLUME 13.8 fl (7.5-11.1); PLATELET COUNT 44 10^3/uL (134-434); RBC 2.76 M/mm3 (3.60-5.2); RDW 14.2 % (11.6-15.6); WHITE BLOOD COUNT 18.5 K/mm3 (4.0-10.0)
[2022-03-15 08:15] LABS: CHLORIDE 105 mmol/L (98-107); SODIUM 141 mmol/L (136-145)
[2022-03-15 08:17] LABS: ALBUMIN 1.4 g/dl (3.4-5.0); ANION GAP 11 MMOL/L (8-16); CO2 25 mmol/L (21-32); GLUCOSE,RANDOM 298 mg/dL (74-106); MAGNESIUM 2.4 mg/dL (1.8-2.4)
[2022-03-15 08:20] LABS: CREATININE 1.8 mg/dL (0.55-1.3); SGOT/AST 38 U/L (15-37); SGPT/ALT 75 U/L (13-61)
[2022-03-15 08:22] LABS: BILIRUBIN,TOTAL 0.6 mg/dL (0.2-1); TOT PROT 3.9 g/dl (6.4-8.2)
[2022-03-15 08:23] LABS: ALK PHOS 340 U/L (45-117)
[2022-03-15 08:29] LABS: BLOOD UREA NITROGEN 104.1 mg/dL (7-18); CALCIUM 6.9 mg/dL (8.5-10.1)
[2022-03-15 10:20] LABS: ANISOCYTOSIS 1+; MACROCYTOSIS 1+; PLATELET ESTIMATE DECREASED
[2022-03-15] MEDS: PANTOPRAZOLE SODIUM 40 MG VIAL IVPUSH SCH (10:46)
[2022-03-15] MEDS: levETIRAcetam 500 MG/5 ML INJECTION VIAL IVPB SCH ×2 (10:46→21:33)
[2022-03-15] MEDS: SEVELAMER CARBONATE 0.8 GM POWDER PACKET NGT SCH ×2 (11:23→17:05)
[2022-03-15] MEDS: INSULIN (LEVEMIR) 100 UNITS/ML UNITS SQ SCH ×2 (11:26→21:45)
[2022-03-15] MEDS: CHLORHEXIDINE GLUCONATE 4% CLEANSER FOR DECOLONIZATION TP SCH (21:34)
[2022-03-16] MEDS: MEROPENEM 1 GM in DEXTROSE 5%-WATER 100 ML IVPB SCH ×2 (02:51→13:30)
[2022-03-16] MEDS: INSULIN SLIDING SCALE (NOVOLOG) 1 VIAL SQ SCH ×4 (06:19→21:03)
[2022-03-16] MEDS ORDERED: FUROSEMIDE 40 MG/4 ML INJECTABLE VIAL IVPUSH ONE (06:19)
[2022-03-16] MEDS: ACETAMINOPHEN 650 MG/20.3 ML ORAL SOLUTION (CUPS) PO PRN (06:32)
[2022-03-16] MEDS ORDERED: LACTATED RINGERS SOLUTION 1000 ML INFUS.BAG IV ONE (07:34)
[2022-03-16 07:51] LABS: CHLORIDE 109 mmol/L (98-107); SODIUM 141 mmol/L (136-145)
[2022-03-16 08:03] LABS: HEMATOCRIT 23.3 % (32.4-45.2); HEMOGLOBIN 7.7 GM/dL (10.7-15.3); MCH 29.5 pg (25.7-33.7); MCHC 32.9 g/dl (32.0-36.0); MEAN CELL VOLUME 89.5 fl (80-96); PLATELET COUNT 37 10^3/uL (134-434); RBC 2.61 M/mm3 (3.60-5.2); RDW 14.5 % (11.6-15.6); WHITE BLOOD COUNT 16.4 K/mm3 (4.0-10.0)
[2022-03-16 08:05] LABS: ALBUMIN 1.2 g/dl (3.4-5.0); ANION GAP 9 MMOL/L (8-16); CO2 24 mmol/L (21-32); GLUCOSE,RANDOM 172 mg/dL (74-106)
[2022-03-16 08:07] LABS: MAGNESIUM 2.6 mg/dL (1.8-2.4)
[2022-03-16 08:08] LABS: CREATININE 1.8 mg/dL (0.55-1.3); PHOSPHOROUS 6.5 mg/dL (2.5-4.9); SGOT/AST 34 U/L (15-37); SGPT/ALT 61 U/L (13-61)
[2022-03-16 08:09] LABS: TOT PROT 3.5 g/dl (6.4-8.2)
[2022-03-16] MEDS: SEVELAMER CARBONATE 0.8 GM POWDER PACKET NGT SCH ×3 (08:09→18:13)
[2022-03-16 08:10] LABS: BILIRUBIN,TOTAL 0.5 mg/dL (0.2-1)
[2022-03-16 08:11] LABS: ALK PHOS 277 U/L (45-117); BLOOD UREA NITROGEN 123.8 mg/dL (7-18)
[2022-03-16] MEDS: NOREPINEPHRINE BITARTRATE 16,000 MCG in SODIUM CHLORIDE 484 ML IV SCH (09:00)
[2022-03-16 09:21] LABS: ANISOCYTOSIS 0; MACROCYTOSIS 0; OVALOCYTE 1+
[2022-03-16] MEDS ORDERED: HYDROCORTISONE SOD SUCCINATE 100 MG/2 ML VIAL IVPUSH SCH (10:00)
[2022-03-16] MEDS: PANTOPRAZOLE SODIUM 40 MG VIAL IVPUSH SCH (10:42)
[2022-03-16] MEDS: levETIRAcetam 500 MG/5 ML INJECTION VIAL IVPB SCH ×2 (10:42→21:05)
[2022-03-16] MEDS: MIDODRINE HCL 2.5 MG TABLET PO SCH ×3 (10:42→18:13)
[2022-03-16] MEDS: INSULIN (LEVEMIR) 100 UNITS/ML UNITS SQ SCH (21:05)
[2022-03-16] MEDS: CHLORHEXIDINE GLUCONATE 4% CLEANSER FOR DECOLONIZATION TP SCH (21:05)
[2022-03-17] MEDS: MEROPENEM 1 GM in DEXTROSE 5%-WATER 100 ML IVPB SCH ×2 (02:51→14:13)
[2022-03-17] MEDS: INSULIN SLIDING SCALE (NOVOLOG) 1 VIAL SQ SCH ×4 (06:33→21:46)
[2022-03-17] MEDS: ACETAMINOPHEN 650 MG/20.3 ML ORAL SOLUTION (CUPS) PO PRN (06:59)
[2022-03-17 07:16] LABS: HEMATOCRIT 21.6 % (32.4-45.2); HEMOGLOBIN 7.2 GM/dL (10.7-15.3); MCH 29.7 pg (25.7-33.7); MCHC 33.2 g/dl (32.0-36.0); MEAN CELL VOLUME 89.2 fl (80-96); MEAN PLT VOLUME 12.3 fl (7.5-11.1); PLATELET COUNT 49 10^3/uL (134-434); RBC 2.42 M/mm3 (3.60-5.2); RDW 14.6 % (11.6-15.6); WHITE BLOOD COUNT 15.1 K/mm3 (4.0-10.0)
[2022-03-17 07:33] LABS: CHLORIDE 107 mmol/L (98-107); SODIUM 141 mmol/L (136-145)
[2022-03-17 07:39] LABS: ALBUMIN 1.1 g/dl (3.4-5.0); ANION GAP 9 MMOL/L (8-16); CO2 25 mmol/L (21-32); GLUCOSE,RANDOM 161 mg/dL (74-106); MAGNESIUM 2.6 mg/dL (1.8-2.4)
[2022-03-17 07:41] LABS: SGPT/ALT 52 U/L (13-61)
[2022-03-17 07:42] LABS: CREATININE 1.9 mg/dL (0.55-1.3); PHOSPHOROUS 6.6 mg/dL (2.5-4.9); SGOT/AST 35 U/L (15-37)
[2022-03-17 07:43] LABS: BILIRUBIN,TOTAL 0.5 mg/dL (0.2-1); TOT PROT 3.6 g/dl (6.4-8.2)
[2022-03-17 07:44] LABS: ALK PHOS 256 U/L (45-117)
[2022-03-17 07:54] LABS: BLOOD UREA NITROGEN 123.5 mg/dL (7-18); CALCIUM 6.9 mg/dL (8.5-10.1)
[2022-03-17] MEDS ORDERED: INSULIN REGULAR HUMAN 100 UNITS/ML *VIAL IVPUSH ONE ×3 (07:58→22:58)
[2022-03-17] MEDS ORDERED: DEXTROSE 50%-WATER - 25 GM/50 ML VIAL IVPUSH ONE ×3 (07:59→22:59)
[2022-03-17] MEDS ORDERED: DEXTROSE 50%-WATER 25 GM/50 ML DISP.SYRIN ONE ×3 (08:26→23:52)
[2022-03-17] MEDS: SEVELAMER CARBONATE 0.8 GM POWDER PACKET NGT SCH ×3 (08:30→17:35)
[2022-03-17] MEDS ORDERED: CALCIUM GLUCONATE IN NACL 1 GM/50 ML BAG IVPB ONE ×2 (09:15→19:11)
[2022-03-17 09:37] LABS: ANISOCYTOSIS 0; HELMET CELLS 0; HOWELL-JOLLY BODIES 0; MACROCYTOSIS 0; OVALOCYTE 0; ROULEAU 0; SICKELED CELLS 0; TARGET CELLS 0; TEAR DROP CELLS 0; TOXIC GRANULATION 0
[2022-03-17] MEDS: levETIRAcetam 500 MG/5 ML INJECTION VIAL IVPB SCH ×2 (09:51→21:44)
[2022-03-17] MEDS: MIDODRINE HCL 2.5 MG TABLET PO SCH ×3 (09:51→17:35)
[2022-03-17] MEDS: NOREPINEPHRINE BITARTRATE 16,000 MCG in SODIUM CHLORIDE 484 ML IV SCH (09:51)
[2022-03-17] MEDS: PANTOPRAZOLE SODIUM 40 MG VIAL IVPUSH SCH (09:52)
[2022-03-17] MEDS ORDERED: SODIUM ZIRCONIUM CYCLOSILICATE (LOKELMA) 5 GM PACKET PO SCH ×2 (10:00→23:05)
[2022-03-17] MEDS ORDERED: FUROSEMIDE 40 MG/4 ML INJECTABLE VIAL IVPUSH ONE (12:39)
[2022-03-17 16:16] LABS: INR 1.13 (0.83-1.09)
[2022-03-17 16:19] LABS: ACTIVATED PTT 26.4 SECONDS (25.2-36.5)
[2022-03-17 18:21] LABS: CHLORIDE 106 mmol/L (98-107); SODIUM 140 mmol/L (136-145)
[2022-03-17 18:22] LABS: ANION GAP 9 MMOL/L (8-16); CALCIUM 7.2 mg/dL (8.5-10.1); CO2 26 mmol/L (21-32); GLUCOSE,RANDOM 156 mg/dL (74-106)
[2022-03-17 18:42] LABS: BLOOD UREA NITROGEN 128.6 mg/dL (7-18)
[2022-03-17] MEDS ORDERED: SODIUM ZIRCONIUM CYCLOSILICATE (LOKELMA) 5 GM PACKET PO ONE ×2 (19:12→23:05)
[2022-03-17] MEDS: CHLORHEXIDINE GLUCONATE 4% CLEANSER FOR DECOLONIZATION TP SCH (21:44)
[2022-03-17] MEDS: INSULIN (LEVEMIR) 100 UNITS/ML UNITS SQ SCH (21:48)
[2022-03-17 22:26] LABS: CHLORIDE 107 mmol/L (98-107); SODIUM 141 mmol/L (136-145)
[2022-03-17 22:27] LABS: CALCIUM 7.2 mg/dL (8.5-10.1)
[2022-03-17 22:28] LABS: ANION GAP 8 MMOL/L (8-16); CO2 26 mmol/L (21-32); GLUCOSE,RANDOM 157 mg/dL (74-106)
[2022-03-17 22:32] LABS: BLOOD UREA NITROGEN 131.7 mg/dL (7-18)
[2022-03-17] MEDS ORDERED: CALCIUM GLUCONATE 10% - 1,000 MG/10 ML VIAL IVPUSH ONE (22:59)
[2022-03-18] MEDS: MEROPENEM 1 GM in DEXTROSE 5%-WATER 100 ML IVPB SCH ×2 (01:46→14:12)
[2022-03-18 02:37] LABS: CHLORIDE 109 mmol/L (98-107); SODIUM 142 mmol/L (136-145)
[2022-03-18 02:39] LABS: ANION GAP 8 MMOL/L (8-16); CALCIUM 7.7 mg/dL (8.5-10.1); CO2 25 mmol/L (21-32)
[2022-03-18 02:40] LABS: GLUCOSE,RANDOM 150 mg/dL (74-106)
[2022-03-18 02:43] LABS: CREATININE 1.9 mg/dL (0.55-1.3)
[2022-03-18] MEDS ORDERED: SODIUM ZIRCONIUM CYCLOSILICATE (LOKELMA) 5 GM PACKET PO ONE ×2 (03:38→22:53)
[2022-03-18] MEDS: INSULIN SLIDING SCALE (NOVOLOG) 1 VIAL SQ SCH ×4 (06:19→21:52)
[2022-03-18 08:00] LABS: CHLORIDE 106 mmol/L (98-107); SODIUM 141 mmol/L (136-145)
[2022-03-18 08:05] LABS: GLUCOSE,RANDOM 123 mg/dL (74-106)
[2022-03-18 08:07] LABS: ANION GAP 9 MMOL/L (8-16); CALCIUM 7.3 mg/dL (8.5-10.1); CO2 26 mmol/L (21-32); CREATININE 1.9 mg/dL (0.55-1.3); MAGNESIUM 2.7 mg/dL (1.8-2.4)
[2022-03-18 08:08] LABS: PHOSPHOROUS 6.7 mg/dL (2.5-4.9)
[2022-03-18 08:12] LABS: HEMATOCRIT 18.6 % (32.4-45.2); MCH 30.3 pg (25.7-33.7); MEAN CELL VOLUME 89.2 fl (80-96); MEAN PLT VOLUME 12.2 fl (7.5-11.1); PLATELET COUNT 65 10^3/uL (134-434); RBC 2.09 M/mm3 (3.60-5.2); RDW 14.3 % (11.6-15.6); WHITE BLOOD COUNT 10.6 K/mm3 (4.0-10.0)
[2022-03-18 08:40] LABS: BLOOD UREA NITROGEN 128.5 mg/dL (7-18)
[2022-03-18 08:42] LABS: HEMOGLOBIN 6.3 GM/dL (10.7-15.3)
[2022-03-18] MEDS ORDERED: DEXTROSE 50%-WATER - 25 GM/50 ML VIAL IVPUSH ONE ×2 (09:16→18:50)
[2022-03-18] MEDS ORDERED: INSULIN REGULAR HUMAN 100 UNITS/ML *VIAL IVPUSH ONE ×2 (09:16→18:50)
[2022-03-18] MEDS ORDERED: CALCIUM GLUCONATE 10% - 1,000 MG/10 ML VIAL IVPB ONE ×2 (09:16→18:51)
[2022-03-18 09:56] LABS: ANISOCYTOSIS 0; HELMET CELLS 0; HOWELL-JOLLY BODIES 0; MACROCYTOSIS 0; OVALOCYTE 0; ROULEAU 0; SICKELED CELLS 0; TARGET CELLS 0; TEAR DROP CELLS 0; TOXIC GRANULATION 0
[2022-03-18] MEDS: PANTOPRAZOLE SODIUM 40 MG VIAL IVPUSH SCH (09:56)
[2022-03-18] MEDS: SEVELAMER CARBONATE 0.8 GM POWDER PACKET NGT SCH ×3 (09:56→18:30)
[2022-03-18] MEDS: SODIUM ZIRCONIUM CYCLOSILICATE (LOKELMA) 5 GM PACKET PO SCH ×3 (09:56→21:51)
[2022-03-18] MEDS: levETIRAcetam 500 MG/5 ML INJECTION VIAL IVPB SCH ×2 (09:59→21:51)
[2022-03-18] MEDS ORDERED: DEXTROSE 50%-WATER 25 GM/50 ML DISP.SYRIN IVPUSH ONE (10:15)
[2022-03-18] MEDS: MIDODRINE HCL 2.5 MG TABLET PO SCH ×3 (10:44→18:30)
[2022-03-18 11:39] LABS: VENOUS BASE EXCESS 1.7 mmol/L (-2-2); VENOUS O2 SATURATION 96.4 % (70-80); VENOUS PCO2 39.4 mmHg (38-52); VENOUS PH 7.438 (7.310-7.410)
[2022-03-18 18:31] LABS: CHLORIDE 106 mmol/L (98-107); SODIUM 141 mmol/L (136-145)
[2022-03-18 18:32] LABS: CALCIUM 7.1 mg/dL (8.5-10.1)
[2022-03-18 18:33] LABS: ANION GAP 9 MMOL/L (8-16); CO2 26 mmol/L (21-32); GLUCOSE,RANDOM 200 mg/dL (74-106)
[2022-03-18 18:36] LABS: BLOOD UREA NITROGEN 128.4 mg/dL (7-18); CREATININE 1.9 mg/dL (0.55-1.3)
[2022-03-18] MEDS ORDERED: DEXTROSE 50%-WATER 25 GM/50 ML DISP.SYRIN ONE (19:18)
[2022-03-18] MEDS: NOREPINEPHRINE BITARTRATE 16,000 MCG in SODIUM CHLORIDE 484 ML IV SCH (19:19)
[2022-03-18] MEDS: CHLORHEXIDINE GLUCONATE 4% CLEANSER FOR DECOLONIZATION TP SCH (21:51)
[2022-03-18] MEDS: INSULIN (LEVEMIR) 100 UNITS/ML UNITS SQ SCH (21:51)
[2022-03-18 22:08] LABS: EPI CELLS >36 /uL (0-25.1); HYALINE CASTS 16 /uL (0-3.1); PH,URINE 7.5 (5.0-8.0); URINE APPEARANCE CLOUDY; URINE BACTERIA 44 /uL (0-1359); URINE BILIRUBIN NEGATIVE (NEGATIVE); URINE COLOR YELLOW; URINE GLUCOSE (UA) TRACE (NEGATIVE); URINE KETONE NEGATIVE (NEGATIVE); URINE LEUK ESTERASE 2+ (NEGATIVE); URINE NITRITE NEGATIVE (NEGATIVE); URINE PROTEIN 1+ (NEGATIVE); URINE WBC 276 /uL (0-25.8)
[2022-03-18 22:27] LABS: URINE RBC 250 /uL (0-23.9)
[2022-03-18 22:28] LABS: YEAST POSITIVE (NEGATIVE)
[2022-03-19 00:41] LABS: BASO % 0.3 % (0-2.0); EOS % 1.2 % (0-4.5); HEMATOCRIT 22.4 % (32.4-45.2); HEMOGLOBIN 7.7 GM/dL (10.7-15.3); LYMPH % 3.4 % (8-40); MCH 29.3 pg (25.7-33.7); MCHC 34.3 g/dl (32.0-36.0); MEAN CELL VOLUME 85.3 fl (80-96); MEAN PLT VOLUME 10.5 fl (7.5-11.1); MONO % 3.6 % (3.8-10.2); NEUT % 91.5 % (42.8-82.8); PLATELET COUNT 85 10^3/uL (134-434); RBC 2.62 M/mm3 (3.60-5.2); RDW 16.4 % (11.6-15.6); WHITE BLOOD COUNT 9.1 K/mm3 (4.0-10.0)
[2022-03-19 01:02] LABS: CHLORIDE 108 mmol/L (98-107); SODIUM 142 mmol/L (136-145)
[2022-03-19 01:03] LABS: CALCIUM 7.4 mg/dL (8.5-10.1)
[2022-03-19 01:04] LABS: ANION GAP 8 MMOL/L (8-16); CO2 26 mmol/L (21-32); GLUCOSE,RANDOM 190 mg/dL (74-106)
[2022-03-19 01:07] LABS: CREATININE 1.9 mg/dL (0.55-1.3)
[2022-03-19] MEDS ORDERED: DEXTROSE 50%-WATER - 25 GM/50 ML VIAL IVPUSH ONE (02:07)
[2022-03-19] MEDS ORDERED: SODIUM ZIRCONIUM CYCLOSILICATE (LOKELMA) 5 GM PACKET PO ONE (02:08)
[2022-03-19] MEDS ORDERED: INSULIN REGULAR HUMAN 100 UNITS/ML *VIAL IVPUSH ONE (02:09)
[2022-03-19] MEDS ORDERED: CALCIUM GLUCONATE IN NACL 1 GM/50 ML BAG IVPB ONE (02:15)
[2022-03-19 02:20] LABS: BLOOD UREA NITROGEN 125.6 mg/dL (7-18)
[2022-03-19] MEDS ORDERED: DEXTROSE 50%-WATER 25 GM/50 ML DISP.SYRIN ONE (03:55)
[2022-03-19] MEDS: INSULIN SLIDING SCALE (NOVOLOG) 1 VIAL SQ SCH ×4 (06:11→21:55)
[2022-03-19 08:22] LABS: CHLORIDE 108 mmol/L (98-107); SODIUM 142 mmol/L (136-145)
[2022-03-19 08:23] LABS: ANION GAP 9 MMOL/L (8-16); CO2 25 mmol/L (21-32)
[2022-03-19 08:24] LABS: MAGNESIUM 2.5 mg/dL (1.8-2.4)
[2022-03-19 08:26] LABS: CALCIUM 7.6 mg/dL (8.5-10.1)
[2022-03-19 08:27] LABS: BASO % 1.1 % (0-2.0); CREATININE 1.8 mg/dL (0.55-1.3); EOS % 1.3 % (0-4.5); HEMATOCRIT 20.9 % (32.4-45.2); HEMOGLOBIN 7.1 GM/dL (10.7-15.3); LYMPH % 3.4 % (8-40); MCH 28.9 pg (25.7-33.7); MCHC 33.9 g/dl (32.0-36.0); MONO % 4.8 % (3.8-10.2); NEUT % 89.4 % (42.8-82.8); PHOSPHOROUS 6.6 mg/dL (2.5-4.9); PLATELET COUNT 87 10^3/uL (134-434); RBC 2.46 M/mm3 (3.60-5.2); RDW 16.7 % (11.6-15.6); WHITE BLOOD COUNT 8.1 K/mm3 (4.0-10.0)
[2022-03-19 08:28] LABS: BLOOD UREA NITROGEN 135.1 mg/dL (7-18); GLUCOSE,RANDOM 153 mg/dL (74-106)
[2022-03-19 09:53] LABS: ANISOCYTOSIS 1+; MACROCYTOSIS 0
[2022-03-19] MEDS: SEVELAMER CARBONATE 0.8 GM POWDER PACKET NGT SCH ×3 (10:07→17:27)
[2022-03-19] MEDS: levETIRAcetam 500 MG/5 ML INJECTION VIAL IVPB SCH ×2 (10:07→21:55)
[2022-03-19] MEDS: SODIUM ZIRCONIUM CYCLOSILICATE (LOKELMA) 5 GM PACKET PO SCH ×2 (10:07→21:55)
[2022-03-19] MEDS: MIDODRINE HCL 2.5 MG TABLET PO SCH ×3 (10:07→17:27)
[2022-03-19] MEDS: PANTOPRAZOLE SODIUM 40 MG VIAL IVPUSH SCH (10:07)
[2022-03-19] MEDS ORDERED: FUROSEMIDE 40 MG/4 ML INJECTABLE VIAL IVPUSH ONE (11:05)
[2022-03-19] MEDS: MORPHINE SULFATE/0.9% NACL/PF 100 MG/100 ML BAG IVPB SCH (14:03)
[2022-03-19] MEDS: ACETAMINOPHEN 650 MG/20.3 ML ORAL SOLUTION (CUPS) PO PRN (17:28)
[2022-03-19] MEDS ORDERED: NOREPINEPHRINE BITARTRATE 4 MG/4 ML ML IV ONE (18:45)
[2022-03-19] MEDS: INSULIN (LEVEMIR) 100 UNITS/ML UNITS SQ SCH (21:54)
[2022-03-19] MEDS: CHLORHEXIDINE GLUCONATE 4% CLEANSER FOR DECOLONIZATION TP SCH (21:56)
[2022-03-20] MEDS: NOREPINEPHRINE BITARTRATE 16,000 MCG in SODIUM CHLORIDE 484 ML IV SCH ×2 (02:59→08:15)
[2022-03-20] MEDS: INSULIN SLIDING SCALE (NOVOLOG) 1 VIAL SQ SCH ×4 (06:11→21:59)
[2022-03-20] MEDS ORDERED: LYTES/YERBA SANTA 60 ML SPRAY MM PRN (07:45)
[2022-03-20 07:54] LABS: BASO % 0.9 % (0-2.0); HEMATOCRIT 16.2 % (32.4-45.2); LYMPH % 6.9 % (8-40); MCH 28.7 pg (25.7-33.7); MCHC 33.8 g/dl (32.0-36.0); MEAN CELL VOLUME 84.9 fl (80-96); MEAN PLT VOLUME 10.8 fl (7.5-11.1); MONO % 2.5 % (3.8-10.2); NEUT % 85.7 % (42.8-82.8); PLATELET COUNT 79 10^3/uL (134-434); RBC 1.91 M/mm3 (3.60-5.2); RDW 16.7 % (11.6-15.6)
[2022-03-20 08:09] LABS: CHLORIDE 110 mmol/L (98-107); SODIUM 144 mmol/L (136-145)
[2022-03-20 08:11] LABS: CALCIUM 7.1 mg/dL (8.5-10.1)
[2022-03-20 08:12] LABS: ANION GAP 8 MMOL/L (8-16); CO2 27 mmol/L (21-32); GLUCOSE,RANDOM 123 mg/dL (74-106); MAGNESIUM 2.6 mg/dL (1.8-2.4)
[2022-03-20 08:15] LABS: CREATININE 1.8 mg/dL (0.55-1.3); PHOSPHOROUS 6.4 mg/dL (2.5-4.9)
[2022-03-20] MEDS: SEVELAMER CARBONATE 0.8 GM POWDER PACKET NGT SCH ×3 (08:15→17:49)
[2022-03-20 08:29] LABS: BLOOD UREA NITROGEN 137.5 mg/dL (7-18)
[2022-03-20 08:31] LABS: HEMOGLOBIN 5.5 GM/dL (10.7-15.3)
[2022-03-20] MEDS: levETIRAcetam 500 MG/5 ML INJECTION VIAL IVPB SCH ×2 (10:50→21:58)
[2022-03-20] MEDS: MIDODRINE HCL 2.5 MG TABLET PO SCH ×3 (10:50→17:49)
[2022-03-20] MEDS: PANTOPRAZOLE SODIUM 40 MG VIAL IVPUSH SCH (10:51)
[2022-03-20] MEDS: SODIUM ZIRCONIUM CYCLOSILICATE (LOKELMA) 5 GM PACKET PO SCH ×2 (10:51→21:59)
[2022-03-20] MEDS: MORPHINE SULFATE/0.9% NACL/PF 100 MG/100 ML BAG IVPB SCH (10:51)
[2022-03-20 17:55] LABS: HEMATOCRIT 23.8 % (32.4-45.2); HEMOGLOBIN 8.1 GM/dL (10.7-15.3); MCH 28.8 pg (25.7-33.7); MCHC 33.9 g/dl (32.0-36.0); MEAN CELL VOLUME 85.1 fl (80-96); MEAN PLT VOLUME 10.9 fl (7.5-11.1); PLATELET COUNT 92 10^3/uL (134-434); RBC 2.79 M/mm3 (3.60-5.2); RDW 15.5 % (11.6-15.6); WHITE BLOOD COUNT 6.6 K/mm3 (4.0-10.0)
[2022-03-20] MEDS: INSULIN (LEVEMIR) 100 UNITS/ML UNITS SQ SCH (21:58)
[2022-03-20] MEDS: CHLORHEXIDINE GLUCONATE 4% CLEANSER FOR DECOLONIZATION TP SCH (21:58)
[2022-03-21] MEDS: INSULIN SLIDING SCALE (NOVOLOG) 1 VIAL SQ SCH ×4 (06:33→22:07)
[2022-03-21] MEDS: MORPHINE SULFATE/0.9% NACL/PF 100 MG/100 ML BAG IVPB SCH ×2 (06:33→10:45)
[2022-03-21 07:35] LABS: BASO % 0.6 % (0-2.0); EOS % 2.5 % (0-4.5); HEMATOCRIT 20.7 % (32.4-45.2); LYMPH % 5.6 % (8-40); MCH 28.8 pg (25.7-33.7); MCHC 33.9 g/dl (32.0-36.0); MEAN CELL VOLUME 85.1 fl (80-96); MONO % 4.8 % (3.8-10.2); NEUT % 86.5 % (42.8-82.8); PLATELET COUNT 81 10^3/uL (134-434); RBC 2.43 M/mm3 (3.60-5.2); RDW 15.5 % (11.6-15.6); WHITE BLOOD COUNT 7.1 K/mm3 (4.0-10.0)
[2022-03-21 07:50] LABS: CHLORIDE 110 mmol/L (98-107); SODIUM 144 mmol/L (136-145)
[2022-03-21 07:58] LABS: ALBUMIN 0.9 g/dl (3.4-5.0); ANION GAP 7 MMOL/L (8-16); CALCIUM 7.1 mg/dL (8.5-10.1); CO2 27 mmol/L (21-32)
[2022-03-21 07:59] LABS: GLUCOSE,RANDOM 136 mg/dL (74-106); MAGNESIUM 2.5 mg/dL (1.8-2.4)
[2022-03-21] MEDS: SEVELAMER CARBONATE 0.8 GM POWDER PACKET NGT SCH ×3 (08:00→17:06)
[2022-03-21 08:01] LABS: CREATININE 1.7 mg/dL (0.55-1.3); PHOSPHOROUS 5.7 mg/dL (2.5-4.9); SGOT/AST 43 U/L (15-37); SGPT/ALT 47 U/L (13-61)
[2022-03-21 08:03] LABS: BILIRUBIN,TOTAL 0.3 mg/dL (0.2-1); TOT PROT 3.6 g/dl (6.4-8.2)
[2022-03-21 08:04] LABS: ALK PHOS 229 U/L (45-117)
[2022-03-21 08:09] LABS: BLOOD UREA NITROGEN 118.9 mg/dL (7-18)
[2022-03-21] MEDS: levETIRAcetam 500 MG/5 ML INJECTION VIAL IVPB SCH ×2 (10:07→22:04)
[2022-03-21] MEDS: SODIUM ZIRCONIUM CYCLOSILICATE (LOKELMA) 5 GM PACKET PO SCH ×2 (10:09→22:04)
[2022-03-21] MEDS: NOREPINEPHRINE BITARTRATE 16,000 MCG in SODIUM CHLORIDE 484 ML IV SCH (10:09)
[2022-03-21] MEDS: PANTOPRAZOLE SODIUM 40 MG VIAL IVPUSH SCH (10:09)
[2022-03-21] MEDS: MIDODRINE HCL 2.5 MG TABLET PO SCH ×3 (10:09→17:06)
[2022-03-21] MEDS: ACETAMINOPHEN 650 MG/20.3 ML ORAL SOLUTION (CUPS) PO PRN (17:09)
[2022-03-21] MEDS: CHLORHEXIDINE GLUCONATE 4% CLEANSER FOR DECOLONIZATION TP SCH (22:03)
[2022-03-21] MEDS: INSULIN (LEVEMIR) 100 UNITS/ML UNITS SQ SCH (22:04)
[2022-03-22] MEDS: INSULIN SLIDING SCALE (NOVOLOG) 1 VIAL SQ SCH ×4 (06:16→22:32)
[2022-03-22 06:43] LABS: HEMATOCRIT 20.5 % (32.4-45.2); HEMOGLOBIN 7.1 GM/dL (10.7-15.3); MCHC 34.3 g/dl (32.0-36.0); MEAN CELL VOLUME 84.6 fl (80-96); MEAN PLT VOLUME 11.1 fl (7.5-11.1); PLATELET COUNT 84 10^3/uL (134-434); RBC 2.43 M/mm3 (3.60-5.2); RDW 15.4 % (11.6-15.6); WHITE BLOOD COUNT 7.5 K/mm3 (4.0-10.0)
[2022-03-22 07:02] LABS: CHLORIDE 110 mmol/L (98-107); SODIUM 143 mmol/L (136-145)
[2022-03-22 07:05] LABS: CALCIUM 7.1 mg/dL (8.5-10.1)
[2022-03-22 07:06] LABS: ANION GAP 8 MMOL/L (8-16); CO2 26 mmol/L (21-32); GLUCOSE,RANDOM 118 mg/dL (74-106); MAGNESIUM 2.7 mg/dL (1.8-2.4)
[2022-03-22 07:09] LABS: BLOOD UREA NITROGEN 119.3 mg/dL (7-18); CREATININE 1.6 mg/dL (0.55-1.3); PHOSPHOROUS 5.8 mg/dL (2.5-4.9)
[2022-03-22 08:37] LABS: ANISOCYTOSIS 0; HELMET CELLS 0; HOWELL-JOLLY BODIES 0; MACROCYTOSIS 0; OVALOCYTE 0; ROULEAU 0; SICKELED CELLS 0; TARGET CELLS 0; TEAR DROP CELLS 0; TOXIC GRANULATION 0
[2022-03-22] MEDS: NOREPINEPHRINE BITARTRATE 16,000 MCG in SODIUM CHLORIDE 484 ML IV SCH (08:45)
[2022-03-22] MEDS: SEVELAMER CARBONATE 0.8 GM POWDER PACKET NGT SCH ×3 (10:17→17:42)
[2022-03-22] MEDS: SODIUM ZIRCONIUM CYCLOSILICATE (LOKELMA) 5 GM PACKET PO SCH (10:30)
[2022-03-22] MEDS: levETIRAcetam 500 MG/5 ML INJECTION VIAL IVPB SCH ×2 (10:30→22:32)
[2022-03-22] MEDS: MIDODRINE HCL 2.5 MG TABLET PO SCH ×3 (10:31→17:41)
[2022-03-22] MEDS: PANTOPRAZOLE SODIUM 40 MG VIAL IVPUSH SCH (10:31)
[2022-03-22] MEDS: MORPHINE SULFATE/0.9% NACL/PF 100 MG/100 ML BAG IVPB SCH (10:31)
[2022-03-22] MEDS: CHLORHEXIDINE GLUCONATE 4% CLEANSER FOR DECOLONIZATION TP SCH (22:31)
[2022-03-22] MEDS: INSULIN (LEVEMIR) 100 UNITS/ML UNITS SQ SCH (22:32)
[2022-03-23 05:34] LABS: HEMATOCRIT 17.1 % (32.4-45.2); MCH 29.1 pg (25.7-33.7); MCHC 33.8 g/dl (32.0-36.0); MEAN CELL VOLUME 85.9 fl (80-96); MEAN PLT VOLUME 10.8 fl (7.5-11.1); PLATELET COUNT 69 10^3/uL (134-434); RBC 1.99 M/mm3 (3.60-5.2); RDW 15.2 % (11.6-15.6); WHITE BLOOD COUNT 6.8 K/mm3 (4.0-10.0)
[2022-03-23 05:50] LABS: CHLORIDE 110 mmol/L (98-107); SODIUM 145 mmol/L (136-145)
[2022-03-23 05:52] LABS: ANION GAP 10 MMOL/L (8-16); CO2 25 mmol/L (21-32); GLUCOSE,RANDOM 204 mg/dL (74-106); MAGNESIUM 2.5 mg/dL (1.8-2.4)
[2022-03-23 05:55] LABS: CREATININE 1.5 mg/dL (0.55-1.3); PHOSPHOROUS 5.5 mg/dL (2.5-4.9)
[2022-03-23 06:20] LABS: HEMOGLOBIN 5.8 GM/dL (10.7-15.3)
[2022-03-23 06:21] LABS: BLOOD UREA NITROGEN 106.4 mg/dL (7-18); CALCIUM 6.9 mg/dL (8.5-10.1)
[2022-03-23] MEDS ORDERED: CALCIUM GLUCONATE IN NACL 1 GM/50 ML BAG IVPB ONE (07:00)
[2022-03-23] MEDS: INSULIN SLIDING SCALE (NOVOLOG) 1 VIAL SQ SCH ×4 (07:31→21:40)
[2022-03-23] MEDS: SEVELAMER CARBONATE 0.8 GM POWDER PACKET NGT SCH ×3 (08:07→17:47)
[2022-03-23] MEDS: levETIRAcetam 500 MG/5 ML INJECTION VIAL IVPB SCH ×2 (11:05→21:38)
[2022-03-23] MEDS: ACETAMINOPHEN 650 MG/20.3 ML ORAL SOLUTION (CUPS) PO PRN (11:05)
[2022-03-23] MEDS: MIDODRINE HCL 2.5 MG TABLET PO SCH (11:05)
[2022-03-23] MEDS: PANTOPRAZOLE SODIUM 40 MG VIAL IVPUSH SCH (11:05)
[2022-03-23] MEDS: MIDODRINE HCL 5 MG TABLET PO SCH ×2 (13:26→17:48)
[2022-03-23] MEDS ORDERED: FUROSEMIDE 40 MG/4 ML INJECTABLE VIAL IVPUSH ONE ×3 (16:24→20:03)
[2022-03-23] MEDS: NOREPINEPHRINE BITARTRATE 16,000 MCG in SODIUM CHLORIDE 484 ML IV SCH (17:47)
[2022-03-23] MEDS ORDERED: ALBUMIN HUMAN 25% 100 ML VIAL IV ONE (20:00)
[2022-03-23] MEDS: MORPHINE SULFATE/0.9% NACL/PF 100 MG/100 ML BAG IVPB SCH (21:32)
[2022-03-23] MEDS: CHLORHEXIDINE GLUCONATE 4% CLEANSER FOR DECOLONIZATION TP SCH (21:38)
[2022-03-23] MEDS: INSULIN (LEVEMIR) 100 UNITS/ML UNITS SQ SCH (21:41)
[2022-03-24] MEDS: INSULIN SLIDING SCALE (NOVOLOG) 1 VIAL SQ SCH ×4 (06:07→21:05)
[2022-03-24 08:02] LABS: HEMATOCRIT 28.4 % (32.4-45.2); HEMOGLOBIN 9.8 GM/dL (10.7-15.3); MCH 28.9 pg (25.7-33.7); MCHC 34.6 g/dl (32.0-36.0); MEAN CELL VOLUME 83.7 fl (80-96); MEAN PLT VOLUME 10.4 fl (7.5-11.1); PLATELET COUNT 64 10^3/uL (134-434); RBC 3.39 M/mm3 (3.60-5.2); RDW 14.9 % (11.6-15.6); WHITE BLOOD COUNT 7.5 K/mm3 (4.0-10.0)
[2022-03-24 08:32] LABS: CHLORIDE 109 mmol/L (98-107); SODIUM 145 mmol/L (136-145)
[2022-03-24 08:37] LABS: ALBUMIN 0.9 g/dl (3.4-5.0); ANION GAP 11 MMOL/L (8-16); CALCIUM 7.4 mg/dL (8.5-10.1); CO2 25 mmol/L (21-32); MAGNESIUM 2.5 mg/dL (1.8-2.4)
[2022-03-24] MEDS: SEVELAMER CARBONATE 0.8 GM POWDER PACKET NGT SCH ×3 (08:38→18:06)
[2022-03-24 08:40] LABS: CREATININE 1.6 mg/dL (0.55-1.3); PHOSPHOROUS 5.3 mg/dL (2.5-4.9); SGPT/ALT 52 U/L (13-61)
[2022-03-24 08:41] LABS: SGOT/AST 40 U/L (15-37)
[2022-03-24 08:42] LABS: BILIRUBIN,TOTAL 0.4 mg/dL (0.2-1); TOT PROT 3.9 g/dl (6.4-8.2)
[2022-03-24 08:46] LABS: ALK PHOS 351 U/L (45-117); BLOOD UREA NITROGEN 109.9 mg/dL (7-18)
[2022-03-24] MEDS: NOREPINEPHRINE BITARTRATE 16,000 MCG in SODIUM CHLORIDE 484 ML IV SCH (09:52)
[2022-03-24] MEDS: MIDODRINE HCL 5 MG TABLET PO SCH ×3 (09:55→18:06)
[2022-03-24] MEDS: levETIRAcetam 500 MG/5 ML INJECTION VIAL IVPB SCH ×2 (09:55→21:04)
[2022-03-24] MEDS: PANTOPRAZOLE SODIUM 40 MG VIAL IVPUSH SCH (09:55)
[2022-03-24] MEDS: ACETAMINOPHEN 650 MG/20.3 ML ORAL SOLUTION (CUPS) PO PRN (10:10)
[2022-03-24] MEDS: MORPHINE SULFATE/0.9% NACL/PF 100 MG/100 ML BAG IVPB SCH (10:50)
[2022-03-24 11:03] LABS: EPI CELLS >36 /uL (0-25.1); HYALINE CASTS 3 /uL (0-3.1); URINE APPEARANCE CLOUDY; URINE BACTERIA 885 /uL (0-1359); URINE BILIRUBIN NEGATIVE (NEGATIVE); URINE COLOR YELLOW; URINE GLUCOSE (UA) NEGATIVE (NEGATIVE); URINE KETONE NEGATIVE (NEGATIVE); URINE LEUK ESTERASE 3+ (NEGATIVE); URINE NITRITE NEGATIVE (NEGATIVE); URINE PROTEIN 2+ (NEGATIVE); URINE RBC 1168 /uL (0-23.9); URINE UROBILINOGEN 0.2 mg/dL (0.2-1.0); URINE WBC 940 /uL (0-25.8)
[2022-03-24] MEDS ORDERED: FUROSEMIDE 40 MG/4 ML INJECTABLE VIAL IVPUSH ONE ×2 (12:06→21:20)
[2022-03-24] MEDS ORDERED: ALBUMIN HUMAN 25% 12.5 GM/50 ML VIAL IV SCH (12:15)
[2022-03-24] MEDS: ALBUMIN HUMAN 25% 100 ML VIAL IV SCH ×7 (12:35→23:31)
[2022-03-24] MEDS: CHLORHEXIDINE GLUCONATE 4% CLEANSER FOR DECOLONIZATION TP SCH (21:04)
[2022-03-24] MEDS: INSULIN (LEVEMIR) 100 UNITS/ML UNITS SQ SCH (21:05)
[2022-03-25] MEDS: INSULIN SLIDING SCALE (NOVOLOG) 1 VIAL SQ SCH ×4 (06:08→21:14)
[2022-03-25 07:56] LABS: HEMATOCRIT 20.2 % (32.4-45.2); MCHC 34.1 g/dl (32.0-36.0); MEAN CELL VOLUME 84.9 fl (80-96); MEAN PLT VOLUME 10.4 fl (7.5-11.1); PLATELET COUNT 39 10^3/uL (134-434); RBC 2.38 M/mm3 (3.60-5.2); RDW 15.5 % (11.6-15.6); WHITE BLOOD COUNT 5.6 K/mm3 (4.0-10.0)
[2022-03-25 08:06] LABS: CHLORIDE 109 mmol/L (98-107); SODIUM 145 mmol/L (136-145)
[2022-03-25 08:09] LABS: CALCIUM 7.4 mg/dL (8.5-10.1)
[2022-03-25 08:10] LABS: CO2 28 mmol/L (21-32); GLUCOSE,RANDOM 139 mg/dL (74-106); MAGNESIUM 2.5 mg/dL (1.8-2.4)
[2022-03-25 08:11] LABS: HEMOGLOBIN 6.9 GM/dL (10.7-15.3)
[2022-03-25 08:13] LABS: CREATININE 1.6 mg/dL (0.55-1.3); PHOSPHOROUS 5.5 mg/dL (2.5-4.9); SGOT/AST 19 U/L (15-37); SGPT/ALT 27 U/L (13-61)
[2022-03-25 08:15] LABS: BILIRUBIN,TOTAL 0.8 mg/dL (0.2-1); TOT PROT 4.6 g/dl (6.4-8.2)
[2022-03-25 08:17] LABS: ALBUMIN 3.1 g/dl (3.4-5.0); ALK PHOS 153 U/L (45-117); ANION GAP 8 MMOL/L (8-16)
[2022-03-25] MEDS: KCL 10 MEQ IVPB 10 MEQ/100 ML INFUS.BAG IVPB SCH ×3 (09:15→10:52)
[2022-03-25] MEDS: SEVELAMER CARBONATE 0.8 GM POWDER PACKET NGT SCH ×3 (09:26→16:43)
[2022-03-25] MEDS: levETIRAcetam 500 MG/5 ML INJECTION VIAL IVPB SCH ×2 (10:26→21:14)
[2022-03-25] MEDS: PANTOPRAZOLE SODIUM 40 MG VIAL IVPUSH SCH (10:26)
[2022-03-25] MEDS: NOREPINEPHRINE BITARTRATE 16,000 MCG in SODIUM CHLORIDE 484 ML IV SCH (10:27)
[2022-03-25] MEDS: MIDODRINE HCL 5 MG TABLET PO SCH ×3 (10:28→17:26)
[2022-03-25] MEDS ORDERED: FUROSEMIDE 40 MG/4 ML INJECTABLE VIAL IVPUSH ONE ×2 (10:55→16:27)
[2022-03-25] MEDS ORDERED: FUROSEMIDE 40 MG/4 ML INJECTABLE VIAL ONE (16:31)
[2022-03-25] MEDS: MORPHINE SULFATE/0.9% NACL/PF 100 MG/100 ML BAG IVPB SCH (17:21)
[2022-03-25] MEDS: CHLORHEXIDINE GLUCONATE 4% CLEANSER FOR DECOLONIZATION TP SCH (21:14)
[2022-03-25] MEDS: INSULIN (LEVEMIR) 100 UNITS/ML UNITS SQ SCH (21:17)
[2022-03-26] MEDS ORDERED: ACETAMINOPHEN 1000 MG/100 ML BAG IVPB PRN (01:40)
[2022-03-26] MEDS: ACETAMINOPHEN 650 MG/20.3 ML ORAL SOLUTION (CUPS) PO PRN ×2 (01:43→09:18)
[2022-03-26] MEDS ORDERED: VASOPRESSIN 20 UNITS/ML VIAL IV ONE (03:26)
[2022-03-26] MEDS: VASOPRESSIN 40 UNITS/100 ML BAG IV SCH ×2 (03:35→22:00)
[2022-03-26] MEDS ORDERED: LORazepam 2 MG/ML SDV VIAL IVPUSH ONE ×4 (05:20→12:25)
[2022-03-26] MEDS: INSULIN SLIDING SCALE (NOVOLOG) 1 VIAL SQ SCH ×4 (06:14→21:06)
[2022-03-26 07:46] LABS: HEMATOCRIT 28.2 % (32.4-45.2); HEMOGLOBIN 9.6 GM/dL (10.7-15.3); MCH 29.2 pg (25.7-33.7); MCHC 34.2 g/dl (32.0-36.0); MEAN CELL VOLUME 85.4 fl (80-96); MEAN PLT VOLUME 10.6 fl (7.5-11.1); PLATELET COUNT 53 10^3/uL (134-434); RDW 14.8 % (11.6-15.6); WHITE BLOOD COUNT 6.6 K/mm3 (4.0-10.0)
[2022-03-26] MEDS ORDERED: LORazepam 1 MG TABLET PO ONE (07:48)
[2022-03-26] MEDS: SEVELAMER CARBONATE 0.8 GM POWDER PACKET NGT SCH ×3 (08:04→17:44)
[2022-03-26 08:08] LABS: CHLORIDE 108 mmol/L (98-107); SODIUM 143 mmol/L (136-145)
[2022-03-26 08:10] LABS: ANION GAP 7 MMOL/L (8-16); CALCIUM 7.1 mg/dL (8.5-10.1); CO2 28 mmol/L (21-32); GLUCOSE,RANDOM 121 mg/dL (74-106); MAGNESIUM 2.6 mg/dL (1.8-2.4)
[2022-03-26 08:13] LABS: SGOT/AST 31 U/L (15-37); SGPT/ALT 34 U/L (13-61)
[2022-03-26 08:15] LABS: BILIRUBIN,TOTAL 0.4 mg/dL (0.2-1); TOT PROT 4.6 g/dl (6.4-8.2)
[2022-03-26 08:19] LABS: ALBUMIN 2.3 g/dl (3.4-5.0); ALK PHOS 196 U/L (45-117); BLOOD UREA NITROGEN 120.1 mg/dL (7-18)
[2022-03-26] MEDS ORDERED: PROPOFOL 1,000,000 MCG/100 ML VIAL IVPB SCH (08:30)
[2022-03-26] MEDS ORDERED: levETIRAcetam 500 MG/5 ML INJECTION VIAL IVPB ONE (08:36)
[2022-03-26] MEDS ORDERED: MIDAZOLAM IN 0.9 % SOD.CHLORID 100 MG/100 ML PLAST..BAG IVPB SCH (09:00)
[2022-03-26] MEDS: levETIRAcetam 500 MG/5 ML INJECTION VIAL IVPB SCH ×2 (09:00→21:06)
[2022-03-26] MEDS ORDERED: PHENobarbital SODIUM 130 MG/1 ML VIAL IV ONE ×3 (09:15)
[2022-03-26] MEDS ORDERED: LORazepam 2 MG/ML SDV VIAL IVPUSH SCH (09:45)
[2022-03-26] MEDS: LORazepam 2 MG/ML SDV VIAL IVPUSH PRN ×4 (09:50→21:06)
[2022-03-26] MEDS: NOREPINEPHRINE BITARTRATE 16,000 MCG in SODIUM CHLORIDE 484 ML IV SCH ×2 (09:50→23:00)
[2022-03-26] MEDS ORDERED: PHENobarbital 20 MG/5 ML UNIT-DOSE CUP PO ONE (09:51)
[2022-03-26] MEDS ORDERED: PHENOBARBITAL IVPB ONE ×4 (10:00→17:45)
[2022-03-26] MEDS ORDERED: SODIUM CHLORIDE IVPB ONE ×4 (10:00→17:45)
[2022-03-26] MEDS: MIDODRINE HCL 5 MG TABLET PO SCH ×3 (10:33→18:06)
[2022-03-26] MEDS: PANTOPRAZOLE SODIUM 40 MG VIAL IVPUSH SCH (10:33)
[2022-03-26] MEDS ORDERED: PHENobarbital SODIUM 65 MG/1 ML VIAL IVPB ONE (11:45)
[2022-03-26] MEDS ORDERED: PHENobarbital SODIUM 130 MG/1 ML VIAL IVPB ONE (16:19)
[2022-03-26] MEDS ORDERED: DEXTROSE 50%-WATER - 25 GM/50 ML VIAL IVPUSH ONE (17:51)
[2022-03-26] MEDS ORDERED: DEXTROSE 50%-WATER 25 GM/50 ML DISP.SYRIN ONE (17:55)
[2022-03-26] MEDS ORDERED: SODIUM CHLORIDE 250 ML IV STA (19:12)
[2022-03-26] MEDS ORDERED: PHENYLEPHRINE NS PREMIX 50,000 MCG/500 ML BAG CVP SCH (20:00)
[2022-03-26] MEDS: INSULIN (LEVEMIR) 100 UNITS/ML UNITS SQ SCH (21:06)
[2022-03-26] MEDS: CHLORHEXIDINE GLUCONATE 4% CLEANSER FOR DECOLONIZATION TP SCH (21:06)
[2022-03-27] MEDS ORDERED: PHENYLEPHRINE HCL 10 MG/1 ML SINGLE DOSE VIAL ONE (00:08)
[2022-03-27 01:03] VITALS: RESP 14
[2022-03-27 01:04] VITALS: BP 82/31; PULSE 92; TEMP 99.1
[2022-03-27] MEDS ORDERED: HYDROCORTISONE SOD SUCCINATE 100 MG/2 ML VIAL IVPUSH SCH ×3 (01:45→09:00)
== END 2022-03-27 05:00 | disposition expired | DRG 720 ==
LOC: JER 11:58 → JERBED 14:23 → JICU 21:21
PROVIDERS: ADMIT Internal Medicine; ATTEND Internal Medicine
PROC: 05HM33Z Insertion of Infusion Device into Right Internal Jugular Vein, Percutaneous Approach (ICD-10-PCS; 2022-03-05)
PROC: 5A1955Z Respiratory Ventilation, Greater than 96 Consecutive Hours (ICD-10-PCS; principal; 2022-03-06)
PROC: 0BH17EZ Insertion of Endotracheal Airway into Trachea, Via Natural or Artificial Opening (ICD-10-PCS; 2022-03-06)
PROC: 30233N1 Transfusion of Nonautologous Red Blood Cells into Peripheral Vein, Percutaneous Approach (ICD-10-PCS; 2022-03-18)
PROC: 05HN33Z Insertion of Infusion Device into Left Internal Jugular Vein, Percutaneous Approach (ICD-10-PCS; 2022-03-24)
PROC: B544ZZA Ultrasonography of Left Jugular Veins, Guidance (ICD-10-PCS; 2022-03-24)
DX: A41.51 Sepsis due to Escherichia coli [E. coli] (principal); D65 Disseminated intravascular coagulation [defibrination syndrome]; G92.8 Other toxic encephalopathy; J69.0 Pneumonitis due to inhalation of food and vomit; J93.0 Spontaneous tension pneumothorax; J96.90 Respiratory failure, unspecified, unspecified whether with hypoxia or hypercapnia; N17.0 Acute kidney failure with tubular necrosis; R65.21 Severe sepsis with septic shock; J90 Pleural effusion, not elsewhere classified; G93.1 Anoxic brain damage, not elsewhere classified; K65.9 Peritonitis, unspecified; E87.0 Hyperosmolality and hypernatremia; E87.2 Acidosis; I31.3 Pericardial effusion (noninflammatory); N13.30 Unspecified hydronephrosis; B96.20 Unspecified Escherichia coli [E. coli] as the cause of diseases classified elsewhere; D72.829 Elevated white blood cell count, unspecified; F03.90 Unspecified dementia, unspecified severity, without behavioral disturbance, psychotic disturbance, mood disturbance, and anxiety; N39.0 Urinary tract infection, site not specified; R74.01 Elevation of levels of liver transaminase levels; Z68.1 Body mass index [BMI] 19.9 or less, adult; I46.9 Cardiac arrest, cause unspecified; Z16.12 Extended spectrum beta lactamase (ESBL) resistance; D64.9 Anemia, unspecified; I95.9 Hypotension, unspecified; E87.5 Hyperkalemia; E87.6 Hypokalemia; E87.70 Fluid overload, unspecified; L89.152 Pressure ulcer of sacral region, stage 2; R57.0 Cardiogenic shock
CPT/HCPCS: 0241U-QW; 31500; 36415; 36430; 36600; 70450-TC; 71045-TC-FY; 74176-TC; 80048; 80053; 80061; 80076; 81003; 82272; 82533; 82553; 82728; 82803; 82962; 83036; 83540; 83550; 83605; 83735; 84100; 84146; 84484; 85025; 85027; 85379; 85384; 85610; 85730; 86850; 86900; 86901; 86922; 87040; 87070; 87077; 87086; 87107; 87186; 87205; 87305; 87529; 93005; 93010; 93306-TC; 94002; 99285-25; J1644; J3490; P9058